=== PATIENT | female | born 1990 | race Caucasian/White ===

== ENCOUNTER 2019-11-01 18:36 | Emergency (ER) | payer BC ==
[~2019-11-01] VITALS: Ht 167.6 cm; Wt 54.5 kg
[2019-11-01 18:43] VITALS: BP 88/42; Ht 167.6 cm; Wt 54.5 kg
[2019-11-01 19:16] LABS: BASOPHILS 0.2 % (0-2); EOSINOPHILS 1.2 % (0-7); HEMATOCRIT 35.6 % (36.0-48.0); HEMOGLOBIN 11.1 g/dL (12-16); IMMATURE GRANULOCYTES 0.2 % (0-5); LYMPHOCYTES 15.1 % (15-50); MCH 26.8 pg (26.0-34.0); MCHC 31.2 g/dL (31.0-37.0); MEAN PLATELET VOLUME 9.2 fL (7.4-10.4); MONOCYTES 7.1 % (2-11); NEUTROPHILS 76.2 % (40-80); PLATELET COUNT 303 10x3/uL (130-400); RBC 4.14 10x6/uL (4.00-5.40); RDW 13.7 % (11.5-14.5); WBC 10.1 10x3/uL (4.8-10.8)
[2019-11-01 19:31] LABS: ANION GAP 23.2 mmol/L (8-16); CALCIUM 8.4 mg/dL (8.5-10.1); CARBON DIOXIDE 15.2 mmol/L (21.0-32.0); CREATININE - SERUM 1.2 mg/dL (0.6-1.3); POTASSIUM - SERUM 3.4 mmol/L (3.5-5.1)
[2019-11-01 19:37] LABS: ALBUMIN 3.1 g/dL (3.4-5.0); BILIRUBIN - TOTAL 0.38 mg/dL (0.2-1.3); MAGNESIUM - SERUM 2.4 mg/dL (1.8-2.4); PROTEIN - SERUM 6.4 g/dL (6.4-8.2)
[2019-11-01 19:39] LABS: BILIRUBIN NEGATIVE (NEGATIVE); GLUCOSE NEGATIVE (NEGATIVE); KETONE NEGATIVE (NEGATIVE); NITRITE POSITIVE (NEGATIVE); UROBILINOGEN NORMAL (NORMAL)
[2019-11-01 19:40] LABS: EPITHELIAL CELLS 0-5 /hpf (0-5); RED CELLS - URINE 0-5 /hpf (0-5)
[2019-11-01 19:41] LABS: BACTERIA MANY /hpf (NEGATIVE)
[2019-11-01 19:50] LABS: HCG URINE NEGATIVE (NEGATIVE)
[2019-11-01 19:56] LABS: UDS - AMPHET POSITIVE QUAL (NEGATIVE); UDS - BARB NEGATIVE QUAL (NEGATIVE); UDS - BENZO POSITIVE QUAL (NEGATIVE); UDS - COCAINE NEGATIVE QUAL (NEGATIVE); UDS - OPIATE NEGATIVE QUAL (NEGATIVE); UDS - PCP POSITIVE QUAL (NEGATIVE); UDS - THC POSITIVE QUAL (NEGATIVE)
[2019-11-01] MEDS ORDERED: MACROBID100 MG PO (20:46)
[2019-11-01] MEDS ORDERED: FLAGYL500 MG PO (20:48)
[2019-11-01 21:37] LABS: CREATINE KINASE 970 UL (21-215)
[2019-11-01 21:38] LABS: CKMB 17.4 U/L (0.0-3.6)
== END 2019-11-01 23:15 | disposition home or self-care (01) ==
LOC: D.ER 18:36
PROVIDERS: Family Medicine
DX: R41.82 Altered mental status, unspecified (principal); E87.2 Acidosis; N39.0 Urinary tract infection, site not specified; F15.129 Other stimulant abuse with intoxication, unspecified

== ENCOUNTER 2019-11-15 23:22 | Emergency (ER) | payer MEDICAID ==
[~2019-11-15] VITALS: Ht 167.6 cm; Wt 56.8 kg
[~2019-11-15 23:22] MED LIST: FLAGYL500 MG PO; MACROBID100 MG PO
[2019-11-15 23:29] VITALS: Ht 167.6 cm; Wt 56.8 kg
[2019-11-15 23:46] LABS: BASOPHILS 0.2 % (0-2); EOSINOPHILS 0.7 % (0-7); HEMATOCRIT 36.4 % (36.0-48.0); HEMOGLOBIN 11.4 g/dL (12-16); IMMATURE GRANULOCYTES 0.3 % (0-5); LYMPHOCYTES 18.2 % (15-50); MCH 27.4 pg (26.0-34.0); MCHC 31.3 g/dL (31.0-37.0); MCV 87.5 fL (80.0-100.0); MEAN PLATELET VOLUME 9.2 fL (7.4-10.4); MONOCYTES 7.6 % (2-11); PLATELET COUNT 395 10x3/uL (130-400); RBC 4.16 10x6/uL (4.00-5.40)
[2019-11-15 23:53] LABS: CALC OSMOLALITY 289 mosm/kg (275-300); CALCIUM 9.6 mg/dL (8.5-10.1); CARBON DIOXIDE 27.3 mmol/L (21.0-32.0); CHLORIDE - SERUM 107 mmol/L (98-107); CREATININE - SERUM 0.8 mg/dL (0.6-1.3); POTASSIUM - SERUM 3.7 mmol/L (3.5-5.1); SODIUM 144 mmol/L (136-145); UREA NITROGEN 15 mg/dL (7-18); eGFR NON AFRICAN AMERICAN 89 mL/min (90-120)
[2019-11-15 23:56] LABS: GLUCOSE 129 mg/dL (74-106)
[2019-11-15 23:58] LABS: ALBUMIN 3.3 g/dL (3.4-5.0); ALKALINE PHOSPHATASE 78 U/L (30-120); ALT (SGPT) 40 U/L (10-68); BILIRUBIN - TOTAL 0.55 mg/dL (0.2-1.3); MAGNESIUM - SERUM 1.9 mg/dL (1.8-2.4); PROTEIN - SERUM 7.1 g/dL (6.4-8.2)
[2019-11-16 00:41] LABS: BACTERIA MANY /hpf (NEGATIVE); BILIRUBIN NEGATIVE (NEGATIVE); EPITHELIAL CELLS 0-5 /hpf (0-5); GLUCOSE NEGATIVE (NEGATIVE); KETONE NEGATIVE (NEGATIVE); NITRITE POSITIVE (NEGATIVE); UROBILINOGEN NORMAL (NORMAL); WHITE CELLS - URINE 25-50 /hpf (NEGATIVE)
[2019-11-16 00:44] LABS: UDS - AMPHET POSITIVE QUAL (NEGATIVE); UDS - BARB NEGATIVE QUAL (NEGATIVE); UDS - BENZO NEGATIVE QUAL (NEGATIVE); UDS - COCAINE POSITIVE QUAL (NEGATIVE); UDS - OPIATE NEGATIVE QUAL (NEGATIVE); UDS - PCP NEGATIVE QUAL (NEGATIVE); UDS - THC POSITIVE QUAL (NEGATIVE)
[2019-11-16 01:07] LABS: HCG URINE NEGATIVE (NEGATIVE)
[2019-11-16] MEDS ORDERED: CLEOCIN HCL300 MG PO (01:16)
[2019-11-16 03:00] VITALS: BP 125/88
== END 2019-11-16 03:01 | disposition home or self-care (01) ==
LOC: D.ER 23:22
PROVIDERS: Family Medicine
DX: L03.113 Cellulitis of right upper limb (principal); F15.10 Other stimulant abuse, uncomplicated; F14.10 Cocaine abuse, uncomplicated; N39.0 Urinary tract infection, site not specified; M25.521 Pain in right elbow; F41.9 Anxiety disorder, unspecified